=== PATIENT | male | born 1980 | race Caucasian/White ===

== ENCOUNTER 2025-08-13 14:27 | Outpatient (CLI) | payer OTHER, SELFPAY ==
--- NOTE | 2025-08-13 14:43 | ECHO_ITS ---
Patient Info Name: Stoney Piper Age: 45 years : 1980 Gender: Male Ht: 66 in Wt: 236 lbs BSA: 2.28 m2 HR: 103 bpm BP: 136 / 106 mmHg Technical Quality: Good Exam Date: 08/13/2025 2:57 PM Patient Status: O Admit Date: 08/13/2025 Exam Type: CA echo doppler color flow Complete two-dimensional, color flow and Doppler transthoracic echocardiogram is performed. Windows Application Developer: Rocky Aldridge III Attending Provider: Sebas Baker DO Summary 1. Complete two-dimensional, color flow and Doppler transthoracic echocardiogram is performed. 2. Left ventricular chamber dimension is normal. 3. Left ventricular systolic function is preserved, estimated at 50-55. 4. Left ventricular septal wall motion is abnormal with septal motion related to bundle branch block. 5. The left ventricular diastolic function is grade I diastolic dysfunction. 6. E/e' 6 is not elevated. Left Ventricle E/e' 6 is not elevated. Left ventricular chamber dimension is normal. Left ventricular systolic function is preserved, estimated at 50-55. Left ventricular septal wall motion is abnormal with septal motion related to bundle branch block. The left ventricular diastolic function is grade I diastolic dysfunction. Right Ventricle Right ventricular chamber dimension is normal. Right ventricular systolic function is normal and with normal TAPSE 1.8 cm. Left Atria Left atrial chamber dimension is normal. Right Atria Right atrial chamber dimension is normal. Aortic Valve The aortic valve is trileaflet. There is no aortic valve stenosis. There is no aortic valve regurgitation. Pulmonic Valve There is no pulmonic regurgitation. Mitral Valve There is no mitral valve stenosis. There is no mitral valve regurgitation. Tricuspid Valve There is no tricuspid valve regurgitation. Pericardium/Pleural There is no pericardial effusion. Inferior Vena Cava Normal inferior vena cava with >50% collapse upon inspiration consistent with normal right atrial pressure, 5 mmHg. Aorta The aortic root size at the sinus of Valsalva is normal. Left Ventricular Outflow Tract Name Value Normal LVOT 2D LVOT Diameter 2.5 cm LVOT Doppler LVOT Peak Velocity 85 cm/s LVOT Peak Gradient 3 mmHg LVOT Mean Gradient 1 mmHg LVOT VTI 13 cm LVOT VTI/AV VTI Ratio 0.8 LVOT Stroke Volume 65 ml LVOT CO 6.3 l/min LVOT CI 2.7 l/min/m2 Pulmonic Valve Name Value Normal PV Doppler PV Peak Velocity 81 cm/s PV Peak Gradient 3 mmHg PV Mean Gradient 1 mmHg Mitral Valve Name Value Normal MV Doppler MV Peak Gradient 3 mmHg MV Mean Gradient 1 mmHg MV Area (Cont Eq VTI) 4.8 cm2 MV Diastolic Function MV E Peak Velocity 44 cm/s MV A Peak Velocity 73 cm/s MV E/A 0.6 MV Decel Time (PW) 164 ms MV Annular TDI MV E/e' (Septal) 9.4 MV E/e' (Lateral) 4.5 MV E/e' (Average) 7.0 Tricuspid Valve Name Value Normal Estimated PAP/RSVP RA Pressure 5 mmHg <=5 TV Annular TDI TV Lateral Lia s' Velocity 10.5 cm/s >=9.5 Aortic Valve Name Value Normal AV Doppler AV Peak Velocity 116 cm/s AV Peak Gradient 5 mmHg AV Mean Gradient 4 mmHg AV VTI 16 cm AV Area (Cont Eq VTI) 4.0 cm2 >=3.0 AV Area (Cont Eq Maco) 3.6 cm2 AV DI (Maco) 0.74 AV Regurgitation 2D LVOT Area 4.9 cm2 Ventricles Name Value Normal LV Dimensions 2D/MM IVS Diastolic Thickness (2D) 0.8 cm 0.6-1.0 LVID Diastole (2D) 4.8 cm 4.2-5.8 LVIW Diastolic Thickness (2D) 1.0 cm 0.6-1.0 LVID Systole (2D) 3.6 cm 2.5-4.0 LVOT Diameter 2.5 cm LV Mass (2D Cubed) 143.90 g 88.00-224.00 LV Mass Index (2D Cubed) 63 g/m2 49-115 Relative Wall Thickness (2D) 0.40 <=0.42 LV Fractional Shortening/Ejection Fraction 2D/MM LV Fractional Shortening (2D) 26 % 25-43 LV EF (2D Teichholz) 50 % LV Diastolic Volume (4C MOD) 56 ml LV EF (4C MOD) 47 % LV Diastolic Volume (2C MOD) 50 ml LV EF (2C MOD) 49 % LV Diastolic Volume (BP MOD) 55 ml 62-150 LV Diastolic Volume Index (BP MOD) 24 ml/m2 34-74 LV Systolic Volume (BP MOD) 32 ml 21-61 LV Systolic Volume Index (BP MOD) 14 ml/m2 11-31 LV EF (BP MOD) 42 % 52-72 LV Diastolic Length (4C) 7.4 cm LV Systolic Length (4C) 6.3 cm LV Stroke Volume (4C MOD) 26 ml Atria Name Value Normal LA Dimensions LA Volume (4C A-L) 52 ml LA Volume (BP A-L) 46 ml RA Dimensions RA Systolic Major Kenedy Length (4C) 4.4 cm 2.1-2.7 RA Area (4C) 11.8 cm2 <=18.0 Report Signatures
--- OUTSIDE RECORDS SUMMARY | 2025-08-13 16:28 | XMS_ITS | Encounter Summary ---
Author Organization [employer] [facility] Address [address] [place] [address] Care Team Providers Care Cellophane Casting Machine Repairer Name Role Phone Connor Pickens DO Primary Care Provider [phone] Encounter Details Date Type Department Care Team (Latest Contact Info) Description 11/07/2002 Outpatient Historical [facility] CandorKiko MD [address] [address] Skin sensation disturb (Primary Dx) Social History Tobacco Use Types Packs/Day Years Used Date Smoking Tobacco: Never Assessed Sex and Gender Information Value Date Recorded Sex Assigned at Not on file 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
--- OUTSIDE RECORDS SUMMARY | 2025-08-13 16:28 | XMS_ITS | Encounter Summary ---
Author Organization [facility] Address [address] [place] [address] Care Team Providers Care Supervisor Personnel Clerks Name Role Phone Connor Pickens DO Primary Care Provider [phone] Reason for Referral * Outpatient Services (Routine) - Closed Specialty Diagnoses / Procedures Referred By Contac t Referred To Contact Radiology Diagnoses Multiple sclerosis Procedures MRI CERVICAL WO CONTRAST Kiko Kimbrough MD [address] [place] [id number] Phone: tel: fax: [address] [address] Phone: tel: fax: Referral ID Status Reason Start Date Expiration Date V isits Requested Visits Authorized [id number] Closed CTS to Schedule (AOK) 09/17/2013 10/16/2013 1 1 ATION PROTECTION TECHNICIAN * Outpatient Services (Routine) - Closed Specialty Diagnoses / Procedures Referred By Contac t Referred To Contact Radiology Diagnoses Multiple sclerosis Procedures MRI BRAIN W WO CONTRAST Kiko Kimbrough MD Phone: tel: fax: [address] [address] Phone: tel: fax: Referral ID Status Reason Start Date Expiration Date V isits Requested Visits Authorized [id number] Closed CTS to Schedule (AOK) 09/17/2013 10/16/2013 1 1 ATION PROTECTION TECHNICIAN Encounter Details Date Type Department Care Team (Latest Contact Info) Description 09/13/2013 Ancillary Orders [facility] Centralized Test Scheduling [facility] [address] [place] [address] Kiko Kimbrough MD [address] [place] [id number] Multiple sclerosis (CMS/HCC) (Primary Dx) Social History Tobacco Use Types Packs/Day Years Used Date Smoking Tobacco: Never Assessed Sex and Gender Information Value Date Recorded Sex Assigned at Not on file Legal Sex Male 2:46 AM RADIATION PROTECTION TECHNICIAN Gender Identity Not on file Sexual Orientation Not on file documented as of this encounter Plan of Treatment Not on file documented as of this encounter Results * MRI CERVICAL WO CONTRAST (09/24/2013 4:26 PM RADIATION PROTECTION TECHNICIAN) Anatomical Region Laterality Modality Spine Magnetic Resonan ce 09/24/2013 2:04 PM RADIATION PROTECTION TECHNICIAN Impressions 09/25/2013 10:17 AM RADIATION PROTECTION TECHNICIAN IMPRESSION: 1. Grossly unchanged minimal vague signal abnormality within the posterior spinal cord at C2-C4. Narrative 09/25/2013 10:17 AM RADIATION PROTECTION TECHNICIAN MRI cervical spine without contrast 09/24/2013. INDICATION: 33-year-old man with multiple sclerosis. COMPARISON: MRI cervical spine 05/08/2010. TECHNIQUE: Multiplanar, multisequence MR images of the cervical spine were obtained without contrast. FINDINGS: Spinal cord: There is grossly unchanged minimal of vague signal abnormality within the posterior spinal cord at the C2-C4 levels. The remainder of the cord demonstrates normal signal and contour. No cerebellar tonsillar ectopia. Vertebral bodies: Normal vertebral body height, alignment, and marrow signal. Disc spaces, central canal, and neural foramen: No central canal or neural foraminal stenosis identified at any level. There is a small left paracentral focal disc protrusion at C5-C6. Soft tissues: Tiny retention cyst or polyp in the left maxillary sinus. Procedure Note Kirill Stack MD - 09/25/2013 MRI cervical spine without contrast 09/24/2013. INDICATION: 33-year-old man with multiple sclerosis. COMPARISON: MRI cervical spine 05/08/2010. TECHNIQUE: Multiplanar, multisequence MR images of the cervical spine were obtained without contrast. FINDINGS: Spinal cord: There is grossly unchanged minimal of vague signal abnormality within the posterior spinal cord at the C2-C4 levels. The remainder of the cord demonstrates normal signal and contour. No cerebellar tonsillar ectopia. Vertebral bodies: Normal vertebral body height, alignment, and marrow signal. Disc spaces, central canal, and neural foramen: No central canal or neural foraminal stenosis identified at any level. There is a small left paracentral focal disc protrusion at C5-C6. Soft tissues: Tiny retention cyst or polyp in the left maxillary sinus. IMPRESSION IMPRESSION: 1. Grossly unchanged minimal vague signal abnormality within the posterior spinal cord at C2-C4. Kiko Kimbrough MD MR ORDERABLES Final Result * MRI BRAIN W WO CONTRAST (09/24/2013 4:26 PM RADIATION PROTECTION TECHNICIAN) Anatomical Region Laterality Modality Head Magnetic Resonan ce 09/24/2013 2:03 PM RADIATION PROTECTION TECHNICIAN Impressions 09/26/2013 10:20 AM RADIATION PROTECTION TECHNICIAN IMPRESSION: 1. New areas of signal change in the temporal and occipital lobes of the right cerebral hemisphere. 2. Decreased in signal intensity of anterior right temporal lobe lesions. Narrative 09/26/2013 10:20 AM RADIATION PROTECTION TECHNICIAN COMPARISON: 05/08/2010. There are areas of white matter signal change in the centrum semiovale of each cerebral hemisphere. They are adjacent to the corpus callosum. There are unchanged compared with the previous studies. A new area of signal change is seen lateral to the occipital horn of the right lateral ventricle. This is best seen on slice 22 of series 4. Another new area of signal change is seen on slice 20 and another on slice 16 of series 4. These are also adjacent to the occipital horn of the right lateral ventricle. The previously noted white matter changes in the right temporal lobe particularly near the temporal pole are improved compared with the previous study. Brainstem and cerebellum are normal in signal intensity. Procedure Note Demetrio Martinez MD - 09/26/2013 COMPARISON: 05/08/2010. There are areas of white matter signal change in the centrum semiovale of each cerebral hemisphere. They are adjacent to the corpus callosum. There are unchanged compared with the previous studies. A new area of signal change is seen lateral to the occipital horn of the right lateral ventricle. This is best seen on slice 22 of series 4. Another new area of signal change is seen on slice 20 and another on slice 16 of series 4. These are also adjacent to the occipital horn of the right lateral ventricle. The previously noted white matter changes in the right temporal lobe particularly near the temporal pole are improved compared with the previous study. Brainstem and cerebellum are normal in signal intensity. IMPRESSION IMPRESSION: 1. New areas of signal change in the temporal and occipital lobes of the right cerebral hemisphere. 2. Decreased in signal intensity of anterior right temporal lobe lesions. us Kiko Kimbrough MD MR ORDERABLES Final Result documented in this encounter Visit Diagnoses Diagnosis Multiple sclerosis- Primary Multiple sclerosis Multiple sclerosis documented in this encounter Care Teams Supervisor Personnel Clerks Relationship Specialty Start Date End Date Connor Pickens DO PCP - General Family Practice 09/24/13 documented as of this encounter
--- OUTSIDE RECORDS SUMMARY | 2025-08-13 16:28 | XMS_ITS | Encounter Summary ---
Author Organization [employer] [facility] Address [address] [place] [address] Care Team Providers Care Forest Worker Name Role Phone Connor Pickens DO Primary Care Provider [phone] Encounter Details Date Type Department Care Team (Latest Contact Info) Description 04/26/2005 Outpatient Historical [facility] [place] [address] [address] MULTIPLE SCLEROSIS (CMS/HCC) (Primary Dx) Social History Tobacco Use Types Packs/Day Years Used Date Smoking Tobacco: Never Assessed Sex and Gender Information Value Date Recorded Sex Assigned at Not on file 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 Gender Identity Not on file Sexual Orientation Not on file documented as of this encounter Plan of Treatment Not on file documented as of this encounter Procedures Procedure Name Priority Date/Time Associated Diagnosis Comments CBC WITH DIFFERENTIAL Routine 04/26/2005 4:25 PM CDT TSH Routine 04/26/2005 4:25 PM CDT HEPATIC FUNCTION PANEL Routine 04/26/2005 4:25 PM CDT BASIC METABOLIC PANEL Routine 04/26/2005 4:25 PM CDT documented in this encounter Results * (ABNORMAL) CBC WITH DIFFERENTIAL (04/26/2005 4:25 PM CDT) WBC 7.9 4.5 - 11.0 10E3 INTERFACE SYSTEM RBC 5.65 4.30 - 5.70 10E6 INTERFACE SYSTEM HEMOGLOBIN 16.4 13.2 - 17.3 G/DL INTERFACE SYSTEM HEMATOCRIT 48.5 39.0 - 49.0 % INTERFACE SYSTEM MCV 86 80 - 98 fL INTERFACE SYSTEM MCH 29.0 27 - 34 pG INTERFACE SYSTEM MCHC 33.8 32 - 37 g/dL INTERFACE SYSTEM RDW CV 15.5 11 - 16 CV INTERFACE SYSTEM PLATELETS 274 150 - 450 10E3 INTERFACE SYSTEM MPV 8.1(L) 8.6 - 11.7 fl INTERFACE SYSTEM NEUTROPHIL 53 36 - 78 % INTERFACE SYSTEM LYMPHOCYTES 36 24 - 44 % INTERFAC E SYSTEM MONOCYTE 9(H) 0 - 8 % INTERFACE SYSTEM EOSINOPHILS 1 0 - 6 % INTERFAC E SYSTEM BASOPHILS 1 0 - 1 % INTERFACE SYSTEM 04/26/2005 4:25 PM CDT 04/26/2005 5:00 PM CDT Efrain Kimbrough Jr. HEMATOLOGY ORDERABLES Final Res ult Performing Organization Address [facility] Phone Number INTERFACE SYSTEM Refer to clinic/hospital department * TSH (04/26/2005 4:25 PM CDT) TSH 1.048 0.350 - 5.500 mIU/L INTERFACE SYSTEM 04/26/2005 4:25 PM CDT 04/26/2005 5:34 PM CDT Efrain Kimbrough Jr. CHEMISTRY ORDERABLES Final Resu lt Performing Organization Address [facility] de Phone Number INTERFACE SYSTEM Refer to clinic/hospital department * (ABNORMAL) BASIC METABOLIC PANEL (04/26/2005 4:25 PM CDT) SODIUM 141 137 - 145 mmol/L INTERFACE SYSTEM POTASSIUM 4.5 3.6 - 5.0 mmol/L INTERFACE SYSTEM CHLORIDE 107 95 - 110 mmol/L INTERFACE SYSTEM CO2 29 20 - 31 mmol/L INTERFACE SYSTEM ANION GAP 5 0 - 12 INTERFACE SYSTEM BUN 20 6 - 20 mg/dL INTERFACE SYSTEM CREATININE 1.1 0.6 - 1.3 mg/dL INTERFACE SYSTEM GLUCOSE 83 70 - 110 mg/dL INTERFACE SYSTEM CALCIUM 11.0(H) 8.4 - 10.6 mg/dL INTERFACE SYSTEM 04/26/2005 4:25 PM CDT 04/26/2005 5:34 PM CDT Efrain Kimbrough Jr. CHEMISTRY ORDERABLES Final Resu lt Performing Organization Address [facility] de Phone Number INTERFACE SYSTEM Refer to clinic/hospital department * HEPATIC FUNCTION PANEL (04/26/2005 4:25 PM CDT) TOTAL PROTEIN 7.6 6.2 - 8.3 gm/dL INTERFACE SYSTEM ALBUMIN 4.8 3.5 - 5.0 g/dL INTERFACE SYSTEM BILIRUBIN TOTAL 0.6 0.0 - 1.5 mg/dL INTERFACE SYSTEM BILIRUBIN DIRECT 0.2 0.0 - 0.4 mg/dL INTERFACE SYSTEM ALKALINE PHOSPHATASE 70 34 - 132 U/L INTERFACE SYSTEM AST 19 14 - 50 U/L INTERFACE SYSTEM ALT 20 7 - 40 U/L INTERFACE SYSTEM 04/26/2005 4:25 PM CDT 04/26/2005 5:34 PM CDT Efrain Kimbrough Jr. CHEMISTRY ORDERABLES Final Resu lt Performing Organization Address [facility] Phone Number INTERFACE SYSTEM Refer to clinic/hospital department documented in this encounter Visit Diagnoses Diagnosis Multiple sclerosis- Primary documented in this encounter Care Teams Forest Worker Relationship Specialty Start Date End Date Connor Pickens DO PCP - General Family Practice 09/24/13 documented as of this encounter
--- OUTSIDE RECORDS SUMMARY | 2025-08-13 16:28 | XMS_ITS | Clinical Summary ---
Author Organization [facility] Address [address] [facility] Attn: Epic Prelude ADT [place] [address] Care Team Providers Care Nutrition Technician Name Role Phone Connor Pickens DO Primary Care Provider [phone] Social History Tobacco Use Types Packs/Day Years Used Date Smoking Tobacco: Never Assessed Sex and Gender Information Value Date Recorded Sex Assigned at Not on file Legal Sex Male 1:39 AM CORRECTION OFFICER Gender Identity Not on file Sexual Orientation Not on file Plan of Treatment Health Maintenance Due Date Last Done Comments DTAP/TDAP/TD VACCINES (1 - Tdap) 01/06/1999 HEPATITIS B VACCINES (1 of 3 - 19+ 3-dose series) 07/1999 HPV VACCINES (1 - 3-dose SCDM series) 01/06/2007 COLORECTAL SCREENING 01/06/2025 Colorectal Cancer Screening 01/06/2025 FIT-DNA Q 3 years 01/06/2025 FIT/FOBT Q 1 year 01/06/2025 Flex Sig/CT Colonography Q 5 years 01/06/2025 INFLUENZA VACCINE (#1) 2025 Care Teams Nutrition Technician Relationship Specialty Start Date End Date Connor Pickens DO [address] [place] [id number] PCP - General Family Practice 09/24/13
--- OUTSIDE RECORDS SUMMARY | 2025-08-13 16:28 | XMS_ITS | Encounter Summary ---
Author Organization [facility] Address [address] [place] [address] Care Team Providers Care Director Of Casework Department Name Role Phone Connor Pickens DO Primary Care Provider [phone] Encounter Details Date Type Department Care Team (Late st Contact Info) Description 08/17/2002 Outpatient Historical [facility] [address] [place] [phone] [place] [address] [place] [phone] Social History Tobacco Use Types Packs/Day Years Used Date Smoking Tobacco: Never Assessed Sex and Gender Information Value Date Recorded Sex Assigned at Not on file 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
--- OUTSIDE RECORDS SUMMARY | 2025-08-13 16:28 | XMS_ITS | Clinical Summary ---
Author Organization [facility] [employer] Address [address] [address] Care Team Providers Care Band Saw Runner Name Role Phone Connor Pickens DO Primary Care Provider [phone] Source Comments [facility],non-owned Affiliates and Associated Physician Practices is amultiple site organization consisting of ambulatory clinics and hospital sitesin [place], [place], [place] and [place]. This disclosure is being madepursuant to the Care Everywhere program and may not contain all information available regarding this patient. Last updated 18.[facility] Allergies Active Allergy Reactions Criticality Noted Date Comments Codeine Other 07/13/2016 Codeine 12/11/2017 Medications * Be aware that medications may not be up to date on this document. Alwaysverify current medications with the patient. rosuvastatin (CRESTOR) 40 MG tablet Take 1 (one) tablet by mouth once daily Active omeprazole (PRILOSEC) 40 MG capsule Take 1 (one) capsule by mouth daily before breakfast Active Aulander-3 Fatty Acids (FISH OIL) 1200 MG Active vitamin D3 (CHOLECACIFEROL ) 5000 UNITS 1 (one) tablet once daily 8 Active ezetimibe (Zetia) 10 MG tablet Take 1 (one) tablet by mouth once daily Active buPROPion XL 24hr (Wellbutrin-XL) 300 MG tabletIndicatio ns:Major Depressive Disorder Take 1 (one) tablet by mouth once daily Reasons: Major Depressive Disorder 90 tablet 3 3 Active traZODone (Desyrel) 50 MG tabletIndicatio ns:Primary insomnia Take 1 (one) tablet by mouth at bedtime 90 tablet 3 3 Active dimethyl fumarate (Tecfidera) 240 MG capsuleIndicati ons:Relapsing, Remitting Multiple Sclerosis TAKE ONE CAPSULE BY MOUTH TWICE DAILY. STORE IN ORIGINAL CONTAINER AT ROOM TEMPERATURE. Reasons: Relapsing, Remitting Multiple Sclerosis 180 capsule 2 3 Active Active Problems Problem Noted Date Diagnosed Date Hx of major depression 09/17/2021 Refractory migraine without aura 09/17/[address] of the abdomen 03/23/2019 Overview (03/14/2020): Added automatically from request for surgery [id number] Acute duodenitis 03/23/2019 Overview (03/14/2020): Last Assessment & Plan: Appreciate GI (notified by emergency department) CLD NPO @ [facility] EGD tomorrow ppi Empiric abx Supportive pain management Right upper quadrant abdominal pain 03/23/2019 Paresthesias 02/27/2019 Cervicalgia 02/27/2019 Vitamin D deficiency 02/27/2019 Hx of migraines 02/27/2019 Multiple sclerosis 07/13/2016 Partial seizure 07/13/2016 Immunizations Immunization Administration Dates Next Due Covid Moderna primary monova lent 12+ yr 0.5mL 09/21/2021,01/20/2021,12/23/2020 INFLUENZA VACCINE 06/18/2023 Social History Tobacco Use Types Packs/Day Years Used Date Smoking Tobacco: Former Smokeless Tobacco: Never Tobacco Cessation:Counseling Given: Not Answered Alcohol Use Standard Drinks/Week Comments Yes 2 (1 standard drink = 0.6 oz pur e alcohol) Sex and Gender Information Value Date Recorded Sex Assigned at Not on file 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 Gender Identity Male 08/01/2018 8:35 AM CDT Sexual Orientation Not on file Last Filed Vital Signs Vital Sign Reading Time Taken Comments Blood Pressure 132/85 04/26/2023 8:50 AM CDT Pulse 96 04/26/2023 8:50 AM CDT Temperature 35.8 C (96.5 F) 07/21/2021 10:19 AM CDT Respiratory Rate 18 12/11/2017 3:24 AM CUSTOMER SERVICE 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 Oxygen Saturation 97% 04/26/2023 8:50 AM CDT Inhaled Oxygen Concentration - - Weight 92.1 kg (203 lb) 04/26/2023 8:50 AM CDT Height 172.7 cm (5' 8) 04/26/2023 8:50 AM CDT Body Mass Index 30.87 04/26/2023 8:50 AM CDT Plan of Treatment Health Maintenance Due Date Last Done Comments COLOGUARD (AGES 45-75) - COLON CA SCREENING 1980 COLON MONITORING 1980 COLONOSCOPY - COLON CA SCREENING 1980 CT COLONOGRAPHY - COLON CA SCREENING 1980 Colorectal Cancer Screening 1980 FIT - COLON CA SCREENING 1980 FLEX SIG - COLON CA SCREENING 1980 HIV SCREENING 01/06/1995 HEPATITIS C SCREENING 01/02/1998 DTAP/TDAP/TD VACCINES (1 - Tdap) 01/06/1999 HEPATITIS B VACCINE (1 of 3 - 19+ 3-dose series) 01/06/1999 HPV VACCINE (1 - 3-dose SCDM series) 01/06/2007 DEPRESSION SCREENING 10/31/2024 COVID-19 VACCINE ( season) 2025 09/21/2021, 01/20/2021, 12/23/2020 INFLUENZA VACCINE (#1) 2025 06/18/2023 SCREENING FOR DIABETES 04/26/2026 , 03/17/2022, 03/17/2021, Additional history exists ZOSTER VACCINE (1 of 2) 01/06/2030 HIB VACCINE Aged Out No longer eligi ble based on patient's age to complete this topic MENINGOCOCCAL (Group B) VACCINE SHARED DECISION-MAKING Aged Out No longer eligible based on patient's age to complete this topic MENINGOCOCCAL GROUPS A/C/Y/W VACCINE Aged Out No longer eligible based on patient's age to complete this topic PNEUMOCOCCAL VACCINE Aged Out No long er eligible based on patient's age to complete this topic Procedures Procedure Name Priority Date/Time Associated Diagnosis Comments COMPREHENSIVE METABOLIC PANEL Routine 04/26/2023 9:23 AM CDT Multiple sclerosis from Last 3 Months or Most Recently Relevant to Health Maintenance Results * COMPREHENSIVE METABOLIC PANEL (04/26/2023 9:23 AM CDT) Glucose 86 70 - 99 mg/dL 04/26/2023 6:29 PM CDT [facility] Sodium 138 136 - 145 mmol/L 04/26/2023 6:29 PM CDT [facility] Potassium 4.9 3.5 - 5.1 mmol/L 04/26/2023 6:29 PM CDT [facility] Chloride 105 98 - 107 mmol/L 04/26/2023 6:29 PM T [facility] CO2 24 22 - 29 mmol/L 04/26/2023 6:29 PM T [facility] Anion Gap 9 4 - 15 mmol/L 04/26/2023 6:29 PM CDT [facility] BUN 17 7 - 18 mg/dL 04/26/2023 6:29 PM T [facility] Creatinine 0.88 0.72 - 1.25 mg/dL 04/26/2023 6:29 PM T [facility] BUN/Creatinine Ratio 19.3 7.0 - 25.0 04/26/2023 6:29 PM [facility] Protein Total 7.7 6.0 - 8.3 gm/dL 04/26/2023 6:29 PM T [facility] Albumin 4.7 3.4 - 5.0 gm/dL 04/26/2023 6:29 PM T [facility] Calcium 10.1 8.4 - 10.4 mg/dL 04/26/2023 6:29 PM T [facility] Bilirubin Total 0.4 0.2 - 1.0 mg/dL 04/26/2023 6:29 PM T [facility] Alkaline Phosphatase 55 40 - 150 U/L 04/26/2023 6:29 PM T [facility] AST 14 5 - 34 U/L 04/26/2023 6:29 PM CDT [facility] ALT 16 0 - 55 U/L 04/26/2023 6:29 PM T [facility] Calcium Adjusted 9.54 8.4 - 10.4 mg/dL 04/26/2023 6:29 PM CDT [facility] eGFR >60 >60 mL/min/1.7 3m2 04/26/2023 6:29 PM T [facility] Blood BLOOD SPECIMEN / Unknown Venipuncture / Unknown 04/26/2023 9:23 AM CDT 04/26/2023 5:26 PM CDT Narrative [facility] - 04/26/2023 6:29 PM CDT The GFR result was calculated using the updated CKD-EPI Creatinine Equation (2020). Jovon Rogers PA-C LAB - CHEMISTRY ORDERAB LES Final Result [facility] [address] [place] [address], [facility] from Last 3 Months or Most Recently Relevant to Health Maintenance Insurance [employer] Care Teams Band Saw Runner Relationship Specialty Start Date End Date Connor Pickens DO PCP - General Family Medicine 08/01/18
--- OUTSIDE RECORDS SUMMARY | 2025-08-13 16:28 | XMS_ITS | Encounter Summary ---
Author Organization [facility] [place] Address [address] [place] [address] Care Team Providers Care Lockstitch Machine Operator Name Role Phone Connor Pickens DO Primary Care Provider [phone] Reason for Referral * Outpatient Services (Routine) - Closed Specialty Diagnoses / Procedures Referred By Contac t Referred To Contact Radiology Diagnoses Multiple sclerosis Procedures MRI THORACIC W WO CONTRAST Kiko Kimbrough MD [address] [address] Phone: tel: fax: [facility] [address] [place] [address] Phone: tel: fax: Referral ID Status Reason Start Date Expiration Date V isits Requested Visits Authorized [id number] Closed CTS to Schedule ([facility]OK) 05/14/2010 06/14/2010 1 1 Encounter Details Date Type Department Care Team (Latest Contact Info) Description 05/14/2010 Ancillary Orders [facility] Centralized Test Scheduling [place] [address] [place] [address] Kiko Kimbrough MD [address] [address] Multiple Sclerosis (CMS/HCC) Social History Tobacco Use Types Packs/Day Years Used Date Smoking Tobacco: Never Assessed Sex and Gender Information Value Date Recorded Sex Assigned at Not on file 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 Narrative 05/23/2010 3:41 PM CDT CLINICAL DIAGNOSIS: Multiple sclerosis. PROCEDURE: MRI THORACIC W WO CONTRAST ORDER REASON FOR STUDY: No Reason Given. The thoracic intervertebral discs appear normal. The signal characteristics of the imaged bone marrow are within normal limits. I do not see any intrinsic pathology involving the thoracic spinal cord. I specifically do not see any evidence of multiple sclerosis involving the thoracic spinal cord. The postcontrast images show no pathological-appearing areas of contrast enhancement. Procedure Note Arun Gordillo MD - 05/23/2010 CLINICAL DIAGNOSIS: Multiple sclerosis. PROCEDURE: MRI THORACIC W WO CONTRAST ORDER REASON FOR STUDY: No Reason Given. The thoracic intervertebral discs appear normal. The signal characteristics of the imaged bone marrow are within normal limits. I do not see any intrinsic pathology involving the thoracic spinal cord. I specifically do not see any evidence of multiple sclerosis involving the thoracic spinal cord. The postcontrast images show no pathological-appearing areas of contrast enhancement. IMPRESSION IMPRESSION: No abnormalities of the thoracic spine are demonstrated. us Kiko Kimbrough MD MR ORDERABLES Final Result documented in this encounter Visit Diagnoses Diagnosis Multiple sclerosis Multiple sclerosis documented in this encounter Care Teams Lockstitch Machine Operator Relationship Specialty Start Date End Date Connor Pickens DO PCP - General Family Practice 09/24/13 documented as of this encounter
--- OUTSIDE RECORDS SUMMARY | 2025-08-13 16:28 | XMS_ITS | Encounter Summary ---
Author Organization [facility] [place] [address] [place] [address] Care Team Providers Care E Learning Manager Name Role Phone Connor Pickens DO Primary Care Provider [phone] Reason for Referral * Outpatient Services (Routine) - Closed Specialty Diagnoses / Procedures Referred By Contac t Referred To Contact Radiology Diagnoses Multiple sclerosis Procedures MRI BRAIN W WO CONTRAST Kiko Kimbrough MD Phone: tel: fax: [facility] [address] [place] [address] Phone: tel: fax: Referral ID Status Reason Start Date Expiration Date V isits Requested Visits Authorized [id number] Closed CTS to Schedule (AOK) 08/01/2015 08/30/2015 1 1 Encounter Details Date Type Department Care Team (Latest Contact Info) Description 07/31/2015 Ancillary Orders [facility] Centralized Test Scheduling [place] [address] [place] [id number] Kiko Kimbrough MD [address] [id number] Multiple sclerosis (CMS/HCC) (Primary Dx) Social History Tobacco Use Types Packs/Day Years Used Date Smoking Tobacco: Never Assessed Sex and Gender Information Value Date Recorded Sex Assigned at Not on file 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 Plaque size and distribution very similar to 09/24/2013. Narrative 08/10/2015 9:23 AM CDT PROCEDURE: MRI BRAIN W WO CONTRAST REASON FOR STUDY: Multiple sclerosis Multiple small periventricular and pericallosal as well as juxtacortical white matter lesions are noted throughout both cerebral hemispheres most 4 to 5 mm in size. They are very similar to 09/24/2013 comparison examination. Intravenous contrast is administered without abnormal plaque enhancement. Ventricles are normal in size with no evidence for cortical atrophy. Dural venous sinuses are patent. No breakdown of the blood-brain barrier. Procedure Note Sarmad Calvo MD - 08/10/2015 PROCEDURE: MRI BRAIN W WO CONTRAST REASON FOR STUDY: Multiple sclerosis Multiple small periventricular and pericallosal as well as juxtacortical white matter lesions are noted throughout both cerebral hemispheres most 4 to 5 mm in size. They are very similar to 09/24/2013 comparison examination. Intravenous contrast is administered without abnormal plaque enhancement. Ventricles are normal in size with no evidence for cortical atrophy. Dural venous sinuses are patent. No breakdown of the blood-brain barrier. IMPRESSION IMPRESSION: White matter change consistent with a demyelinating process. Plaque size and distribution very similar to 09/24/2013. us Kiko Kimbrough MD MR ORDERABLES Final Result documented in this encounter Visit Diagnoses Diagnosis Multiple sclerosis- Primary Multiple sclerosis documented in this encounter Care Teams E Learning Manager Relationship Specialty Start Date End Date Connor Pickens DO PCP - General Family Practice 09/24/13 documented as of this encounter
--- OUTSIDE RECORDS SUMMARY | 2025-08-13 16:28 | XMS_ITS | Encounter Summary ---
Author Organization [facility] Address [address] [place] [address] Care Team Providers Care Transmission Superintendent Name Role Phone Connor Pickens DO Primary Care Provider [phone] Encounter Details Date Type Department Care Team (Latest Contact Info) Description 10/03/2002 Outpatient Historical [facility] Kiko Kimbrough MD [address] [place] [id number] RF MANAGER DEMYELINATION NOS (CMS/HCC) (Primary Dx) Social History Tobacco Use Types Packs/Day Years Used Date Smoking Tobacco: Never Assessed Sex and Gender Information Value Date Recorded Sex Assigned at Not on file 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
--- OUTSIDE RECORDS SUMMARY | 2025-08-13 16:28 | XMS_ITS | Clinical Summary ---
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 Gender Identity Not on file Sexual Orientation Not on file Last Filed Vital Signs Vital Sign Reading Time Taken Comments Blood Pressure - - Pulse - - Temperature - - Respiratory Rate - - Oxygen Saturation - - Inhaled Oxygen Concentration - - Weight 90.7 kg (200 lb) 05/08/2010 3:04 PM CDT Height 205.7 cm (6' 9) 05/08/2010 3:04 PM CDT Body Mass Index 21.43 05/08/2010 3:04 PM CDT Plan of Treatment Health Maintenance Due [...] 5 years 01/06/2025 INFLUENZA VACCINE (#1) 2025 Insurance [employer] [place] [address] [phone] (Work) [address], [place] [address] * Guarantor: Stoney Piper Account Type Relation to Patient Date of Phone Billing Address Personal/Family Self 1980 [phone] (Work) [address] [place] [address] Care Teams Miller Head Relationship Specialty Start Date End Date Connor Pickens DO PCP - General Family Practice 09/24/13
--- OUTSIDE RECORDS SUMMARY | 2025-08-13 16:28 | XMS_ITS | Encounter Summary ---
Author Organization [employer] [facility] [place] [address] [place] [address] Care Team Providers Care Client Engagement Specialist Name Role Phone Connor Pickens DO Primary Care Provider [phone] Reason for Referral * Outpatient Services (Routine) - Closed Specialty Diagnoses / Procedures Referred By Contac t Referred To Contact Diagnoses Multiple sclerosis Procedures MRI CERVICAL W WO CONTRAST Kiko Kimbrough MD [address] [address] Phone: tel: fax: Kiko Kimbrough MD Phone: tel: fax: Referral ID Status Reason Start Date Expiration Date V isits Requested Visits Authorized [id number] Closed CTS to Schedule ([facility]) 04/28/2010 10/25/2010 1 1 * Outpatient Services (Routine) - Closed Specialty Diagnoses / Procedures Referred By Contac t Referred To Contact Diagnoses Multiple sclerosis Procedures MRI BRAIN W WO CONTRAST Kiko Kimbrough MD [address] [facility] [[email or web address] [address] [place] [address] Phone: tel: fax: Kiko Kimbrough MD Phone: tel: fax: Referral ID Status Reason Start Date Expiration Date V isits Requested Visits Authorized [id number] Closed CTS to Schedule ([facility]) 05/06/2010 06/07/2010 1 1 Encounter Details Date Type Department Care Team (Latest Contact Info) Description 04/28/2010 Ancillary Orders 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 There are at least 2 areas of high signal intensity change on diffusion weighted images around the margins of the body of the left lateral ventricle. These may be active demyelinating plaques. At least one of these areas enhances. Narrative 05/11/2010 12:08 PM CDT PROCEDURE:: MRI BRAIN W WO CONTRAST REASON FOR STUDY: No Reason Given TECHNIQUE: A multiecho, multisequence study was performed using pulse sequences appropriate for this patient's symptoms and condition. Intravenous contrast was used. The multiple sclerosis protocol was used. COMPARISON: MRI of the brain dated 10/03/2002. FINDINGS: There are multiple focal areas of abnormal signal intensity within the brain. There has been progression of these findings since 2001. A new focal area of abnormal signal intensity is seen along the superior margin of the body of the left lateral ventricle. Another is noted in the right centrum semiovale of the frontal lobe. A few small new punctate areas of signal change are seen scattered along the burk of the lateral ventricles and in the white matter of the left frontal lobe. These all appear to be new findings. The largest of these areas is along the dorsal or superior aspect of the body of the left lateral ventricle. This area shows increased signal intensity on diffusion weighted images and may be an area of active demyelination. Two other areas of signal intensity change are seen along the upper portion of the lateral ventricles, but slightly more medially. This is actually within the body of the corpus callosum. The small focal area of abnormal signal on the left side enhances. Otherwise, I see no abnormal enhancement within the brain. There are no black holes. Procedure Note Demetrio Martinez MD - 05/11/2010 PROCEDURE:: MRI BRAIN W WO CONTRAST REASON FOR STUDY: No Reason Given TECHNIQUE: A multiecho, multisequence study was performed using pulse sequences appropriate for this patient's symptoms and condition. Intravenous contrast was used. The multiple sclerosis protocol was used. COMPARISON: MRI of the brain dated 10/03/2002. FINDINGS: There are multiple focal areas of abnormal signal intensity within the brain. There has been progression of these findings since 2001. A new focal area of abnormal signal intensity is seen along the superior margin of the body of the left lateral ventricle. Another is noted in the right centrum semiovale of the frontal lobe. A few small new punctate areas of signal change are seen scattered along the burk of the lateral ventricles and in the white matter of the left frontal lobe. These all appear to be new findings. The largest of these areas is along the dorsal or superior aspect of the body of the left lateral ventricle. This area shows increased signal intensity on diffusion weighted images and may be an area of active demyelination. Two other areas of signal intensity change are seen along the upper portion of the lateral ventricles, but slightly more medially. This is actually within the body of the corpus callosum. The small focal area of abnormal signal on the left side enhances. Otherwise, I see no abnormal enhancement within the brain. There are no black holes. IMPRESSION IMPRESSION: Progression of white matter changes compared with September 2002. There are at least 2 areas of high signal intensity change on diffusion weighted images around the margins of the body of the left lateral ventricle. These may be active demyelinating plaques. At least one of these areas enhances. us Kiko Kimbrough MD MR ORDERABLES Final Result * MRI CERVICAL W WO CONTRAST (05/08/2010 4:03 PM CDT) Anatomical Region Laterality Modality Spine Magnetic Resonan ce 05/08/2010 Impressions 05/13/2010 1:45 PM CDT IMPRESSION: 1. Abnormal signal intensity in the dorsal columns from the C2 level through the upper portion of C4. 2. Abnormal signal intensity in the dorsolateral fasciculus and lateral funniculus on the left side at the C4-C5 level. Narrative 05/13/2010 1:45 PM CDT TECHNIQUE: A multiecho, multisequence study was performed using pulse sequences appropriate for this patient's symptoms and condition. Intravenous contrast was used. COMPARISON: 09/18/2002. There is a long segment of signal abnormality involving the dorsal columns of the cervical cord extending from the lower portion of the C2 vertebra to be C3-C4 intervertebral disc level. Another focal area of abnormal signal intensity is seen in the left dorsolateral fasciculus and dorsal portion of the lateral folliculus on the left side this is at the C4 vertebral level. On the sagittal images from 2001 there appear to be some signal intensity abnormality in the same areas. Postcontrast images show normal enhancement. Procedure Note Demetrio Martinez MD - 05/13/2010 TECHNIQUE: A multiecho, multisequence study was performed using pulse sequences appropriate for this patient's symptoms and condition. Intravenous contrast was used. COMPARISON: 09/18/2002. There is a long segment of signal abnormality involving the dorsal columns of the cervical cord extending from the lower portion of the C2 vertebra to be C3-C4 intervertebral disc level. Another focal area of abnormal signal intensity is seen in the left dorsolateral fasciculus and dorsal portion of the lateral folliculus on the left side this is at the C4 vertebral level. On the sagittal images from 2001 there appear to be some signal intensity abnormality in the same areas. Postcontrast images show normal enhancement. IMPRESSION IMPRESSION: 1. Abnormal signal intensity in the dorsal columns from the C2 level through the upper portion of C4. 2. Abnormal signal intensity in the dorsolateral fasciculus and lateral funniculus on the left side at the C4-C5 level. us Kiko Kimbrough MD MR ORDERABLES Final Result documented in this encounter Visit Diagnoses Diagnosis Multiple sclerosis Multiple sclerosis Multiple sclerosis documented in this encounter Care Teams Client Engagement Specialist Relationship Specialty Start Date End Date Connor Pickens DO PCP - General Family Practice 09/24/13 documented as of this encounter
--- OUTSIDE RECORDS SUMMARY | 2025-08-13 16:28 | XMS_ITS | Encounter Summary ---
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) (Primary Dx) Social History Tobacco Use Types Packs/Day Years Used Date Smoking Tobacco: Never Assessed Sex and Gender Information Value Date Recorded Sex Assigned at Not on file 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
--- OUTSIDE RECORDS SUMMARY | 2025-08-13 16:28 | XMS_ITS | Encounter Summary ---
Author Organization [employer] [facility] [place] [address] [place] [address] Care Team Providers Care Oven Press Tender Name Role Phone Connor Pickens DO Primary Care Provider [phone] Encounter Details Date Type Department Care Team (Latest Contact Info) Description 06/28/2005 Outpatient Historical [facility] Kiko Kimbrough MD [address] [address] MULTIPLE SCLEROSIS (CMS/HCC) (Primary Dx) Social History Tobacco Use Types Packs/Day Years Used Date Smoking Tobacco: Never Assessed Sex and Gender Information Value Date Recorded Sex Assigned at Not on file 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 CHEMISTRY ORDERABLES Final Resu lt INTERFACE SYSTEM Refer to clinic/hospital department documented in this encounter Visit Diagnoses Diagnosis Multiple sclerosis- Primary documented in this encounter Care Teams Oven Press Tender Relationship Specialty Start Date End Date Connor Pickens DO PCP - General Family Practice 09/24/13 documented as of this encounter
--- OUTSIDE RECORDS SUMMARY | 2025-08-13 16:28 | XMS_ITS | Encounter Summary ---
Author Organization [employer] [facility] [place] Address [address] [place] [address] Care Team Providers Care Apple Picker Name Role Phone Connor Pickens DO Primary Care Provider [phone] Reason for Referral * Outpatient Services (Routine) - Closed Specialty Diagnoses / Procedures Referred By Contac t Referred To Contact Radiology Diagnoses Multiple sclerosis Procedures MRI CERVICAL W WO CONTRAST Kiko Kimbrough MD Phone: tel: fax: [facility] [address] [place] [address] Phone: tel: fax: Referral ID Status Reason Start Date Expiration Date V isits Requested Visits Authorized [id number] Closed CTS to Schedule ([facility]) 08/01/2015 08/30/2015 1 1 Encounter Details Date Type Department Care Team (Latest Contact Info) Description 07/31/2015 Ancillary Orders [facility] Centralized Test Scheduling [place] [address] [place] [phone] Kiko Kimbrough MD [address] [phone] Multiple sclerosis (CMS/HCC) (Primary Dx) Social History Tobacco Use Types Packs/Day Years Used Date Smoking Tobacco: Never Assessed Sex and Gender Information Value Date Recorded Sex Assigned at Not on file 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 No plaque enhancement and no real change from 09/24/2013. Narrative 08/10/2015 9:23 AM CDT PROCEDURE: MRI CERVICAL W WO CONTRAST REASON FOR STUDY: Multiple sclerosis Comparison examination 09/24/2013. An MS plaque was noted in the posterior spinal cord at C2-C4 levels. This lesion is best appreciated on proton density series 4 and measures approximately 3 cm in length. It does not enhance on the postinfusion images. Also noted is a subtle 4 mm plaque posteriorly and to the left of the midline at the C4-C5 level. It also looks about the same. It does not enhance. No spinal cord syrinx or hydromyelia. Mild disc degeneration changes with only minimal bulging at C5-C6. Procedure Note Sarmad Calvo MD - 08/10/2015 PROCEDURE: MRI CERVICAL W WO CONTRAST REASON FOR STUDY: Multiple sclerosis Comparison examination 09/24/2013. An MS plaque was noted in the posterior spinal cord at C2-C4 levels. This lesion is best appreciated on proton density series 4 and measures approximately 3 cm in length. It does not enhance on the postinfusion images. Also noted is a subtle 4 mm plaque posteriorly and to the left of the midline at the C4-C5 level. It also looks about the same. It does not enhance. No spinal cord syrinx or hydromyelia. Mild disc degeneration changes with only minimal bulging at C5-C6. IMPRESSION IMPRESSION: Findings consistent with MS involvement of the cervical spinal cord as described above. No plaque enhancement and no real change from 09/24/2013. Kiko Kimbrough MD MR ORDERABLES Final Result documented in this encounter Visit Diagnoses Diagnosis Multiple sclerosis- Primary Multiple sclerosis documented in this encounter Care Teams Apple Picker Relationship Specialty Start Date End Date Cnonor Pickens DO PCP - General Family Practice 09/24/13 documented as of this encounter
--- OUTSIDE RECORDS SUMMARY | 2025-08-13 16:28 | XMS_ITS | Encounter Summary ---
Author Organization [employer] [facility] [place] [place] [address] [place] [address] Care Team Providers Care Personnel Administrator Name Role Phone Connor Pickens DO Primary Care Provider [phone] Reason for Referral * Outpatient Services (Routine) - Closed Specialty Diagnoses / Procedures Referred By Contac t Referred To Contact Radiology Diagnoses Multiple sclerosis Procedures MRI BRAIN W WO CONTRAST Kiko Kimbrough MD Phone: tel: fax: [facility] [address] [place] [address] Phone: tel: fax: Referral ID Status Reason Start Date Expiration Date V isits Requested Visits Authorized [id number] Closed CTS to Schedule ([facility]) 07/21/2016 08/19/2016 1 1 Encounter Details Date Type Department Care Team (Latest Contact Info) Description 07/21/2016 Ancillary Orders 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 Narrative 07/27/2016 10:27 AM CDT PROCEDURE: MRI BRAIN W WO CONTRAST REASON FOR STUDY: Multiple sclerosis PROCEDURE DATE: 07/27/2016 8:58 AM COMPARISON: 08/09/2015. TECHNIQUE: Multiple sclerosis protocol. Contrast used: 15 cc OptiMARK. FINDINGS: Multiple small foci of T2/FLAIR hyperintensity again identified in the periventricular, pericallosal, and subcortical white matter of the bilateral cerebral hemispheres, without substantial interval change when compared to the prior examination. No new white matter lesions identified. No enhancing lesions identified. Sulci and ventricles are normal in size and midline structures are in normal position. No evidence for intracranial mass or abnormal parenchymal or meningeal enhancement. Diffusion images are normal with nothing to suggest a recent infarct. No abnormal extra-axial fluid collections. T2 flow voids grossly maintained within the major intracranial vessels suggesting patency. Small presumed mucous tension cyst posterior floor of the left maxillary sinus, incidental. Procedure Note Jw Hidalgo MD - 07/27/2016 PROCEDURE: MRI BRAIN W WO CONTRAST REASON FOR STUDY: Multiple sclerosis PROCEDURE DATE: 07/27/2016 8:58 AM COMPARISON: 08/09/2015. TECHNIQUE: Multiple sclerosis protocol. Contrast used: 15 cc OptiMARK. FINDINGS: Multiple small foci of T2/FLAIR hyperintensity again identified in the periventricular, pericallosal, and subcortical white matter of the bilateral cerebral hemispheres, without substantial interval change when compared to the prior examination. No new white matter lesions identified. No enhancing lesions identified. Sulci and ventricles are normal in size and midline structures are in normal position. No evidence for intracranial mass or abnormal parenchymal or meningeal enhancement. Diffusion images are normal with nothing to suggest a recent infarct. No abnormal extra-axial fluid collections. T2 flow voids grossly maintained within the major intracranial vessels suggesting patency. Small presumed mucous tension cyst posterior floor of the left maxillary sinus, incidental. IMPRESSION IMPRESSION: Stable white matter disease with no evidence for disease progression or acute demyelination. us Kiko Kimbrough MD MR ORDERABLES Final Result documented in this encounter Visit Diagnoses Diagnosis Multiple sclerosis- Primary Multiple sclerosis documented in this encounter Care Teams Personnel Administrator Relationship Specialty Start Date End Date Connor Pickens DO PCP - General Family Practice 09/24/13 documented as of this encounter
--- OUTSIDE RECORDS SUMMARY | 2025-08-13 16:28 | XMS_ITS | Encounter Summary ---
Author Organization [facility] [place] Address [address] [place] [address] Care Team Providers Care Speech Therapist Early Intervention Name Role Phone Connor Pickens DO Primary Care Provider [phone] Encounter Details Date Type Department Care Team (Late st Contact Info) Description 07/15/2003 Outpatient Historical [facility] [address] [place] [address] [place] [address] [place] [phone] Social History Tobacco Use Types Packs/Day Years Used Date Smoking Tobacco: Never Assessed Sex and Gender Information Value Date Recorded Sex Assigned at Not on file 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
--- OUTSIDE RECORDS SUMMARY | 2025-08-13 16:28 | XMS_ITS | Encounter Summary ---
Author Organization [employer] [facility] [place] Address [address] [place] [address] Care Team Providers Care Sales Promotion Officer Name Role Phone Connor Pickens DO Primary Care Provider [phone] Encounter Details Date Type Department Care Team (Latest Contact Info) Description 09/18/2002 Outpatient Historical [facility] Kiko Kimbrough MD [address] [place] [phone] Skin sensation disturb (Primary Dx) Social History Tobacco Use Types Packs/Day Years Used Date Smoking Tobacco: Never Assessed Sex and Gender Information Value Date Recorded Sex Assigned at Not on file 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
== END 2025-08-13 14:28 | disposition home or self-care (01) ==
LOC: ANHCARD 14:32
PROVIDERS: PCP Emergency Medicine; Visit Provider Internal Medicine Cardiovascular Disease
DX: R93.1 Abnormal findings on diagnostic imaging of heart and coronary circulation (principal); R06.09 Other forms of dyspnea
CPT/HCPCS: 93306